=== PATIENT | male | born 1980 | race Caucasian/White ===

== ENCOUNTER 2016-12-22 14:34 | Emergency (ER) | payer OTHER | END 2016-12-22 16:31 | disposition home or self-care (01) | LOC: FER 14:34 | DX: K52.9 Noninfective gastroenteritis and colitis, unspecified (principal); F17.210 Nicotine dependence, cigarettes, uncomplicated; Z90.89 Acquired absence of other organs | CPT/HCPCS: 99283 ==

== ENCOUNTER 2021-02-08 19:37 | Emergency (ER) | payer SELFPAY ==
[~2021-02-08 19:37] MED LIST: LEVAQUIN750 MG PO; METRONIDAZOLE500 MG PO
== END 2021-02-08 21:15 | disposition home or self-care (01) ==
LOC: FER 19:37
DX: M25.512 Pain in left shoulder (principal); F17.210 Nicotine dependence, cigarettes, uncomplicated
CPT/HCPCS: 73030; J1885

== ENCOUNTER 2022-01-23 01:28 | Emergency (ER) | payer OTHER ==
[2022-01-23 02:02] LABS: BASOPHIL 0.4 % (0-2); EOSINOPHIL 1.7 % (0-5); HCT 47.4 % (42.0-52.0); HGB 16.2 g/dl (13.2-18.0); LYMPHOCYTE 19.5 % (15-48); MCH 30.6 pg (25.0-31.0); MCHC 34.2 g/dL (32.0-36.0); MCV 89.6 fL (78.0-100.0); MONOCYTE 5.6 % (0-12); MPV 10.2 fL (6.0-9.5); NEUTROPHIL 72.4 % (41-80); NRBC 0; PLT 289 K/uL (150-400); RBC 5.29 M/uL (4.70-6.00); RDW 12.5 % (11.5-14.0); WBC 16.1 K/uL (4.0-10.5)
[2022-01-23] MEDS ORDERED: VIBRAMYCIN100 MG PO (02:04)
[2022-01-23] MEDS ORDERED: PREDNISONE 20MG20 MG PO (02:04)
[2022-01-23 02:10] LABS: ALBUMIN 3.5 g/dL (3.4-5.0); BILIRUBIN - TOTAL 0.5 mg/dL (0.2-1.0); BUN/CREAT RATIO (CALC) 14.3 RATIO; CREATININE 0.84 mg/dL (0.67-1.17); GLOBULIN (CALCULATION) 3.7 g/dL; POTASSIUM 3.9 mmol/L (3.5-5.1); TOTAL PROTEIN 7.2 g/dL (6.4-8.2)
[2022-01-23] MEDS ORDERED: TRIAMCINOLONE 080 GM TOP (03:14)
== END 2022-01-23 03:25 | disposition home or self-care (01) ==
LOC: FER 01:28
PROVIDERS: Internal Medicine
DX: L23.9 Allergic contact dermatitis, unspecified cause (principal); L03.317 Cellulitis of buttock; F17.210 Nicotine dependence, cigarettes, uncomplicated
CPT/HCPCS: 36415; 80053; 84145; 85025; 94640; 94664; 96372; J0171; J1200; J2930; J7030